=== PATIENT | male | born 1995 ===

== ENCOUNTER 2021-01-15 06:31 | Emergency (ER) | payer OTHER ==
[~2021-01-15] VITALS: Ht 190.5 cm; Wt 74.8 kg
[2021-01-15] MEDS ORDERED: ONDANSETRON 4 MG/2 ML VIAL ONE ×2 (06:59→08:31)
[2021-01-15] MEDS ORDERED: ONDANSETRON 4 MG/2 ML VIAL IV ONE ×2 (07:00→08:30)
[2021-01-15] MEDS ORDERED: IV NS 1000 ML 1,000 ML IV ONE (07:00)
[2021-01-15 07:11] LABS: HEMATOCRIT 46.9 % (36.7-47.1); MEAN CORPUSCULAR VOLUME 91.1 fL (73.0-96.2); PLATELET COUNT (AUTO) 287 K/uL (152-348)
--- NOTE | 2021-01-15 07:14 | NUR ---
Report given to oncoming DUANE Tejeda.
[2021-01-15 07:25] LABS: BILIRUBIN,DIRECT 0.2 mg/dL (0.0-0.2); BILIRUBIN,TOTAL 0.7 mg/dL (0.2-1.0); CREATININE 1.1 mg/dL (0.6-1.3); POTASSIUM 3.4 mmol/L (3.5-5.1); TOTAL PROTEIN, SERUM 8.2 g/dL (6.4-8.2)
--- NOTE | 2021-01-15 07:47 | NUR ---
Pain now at 5/10 down from 10/10
[2021-01-15] MEDS ORDERED: FAMOTIDINE. 20 MG/2 ML VIAL IV ONE ×2 (08:30→08:32)
[2021-01-15 08:34] LABS: *BILIRUBIN,URIN NEGATIVE (NEGATIVE); *BLOOD, URINE NEGATIVE (NEGATIVE); *CLARITY,URINE CLEAR (CLEAR); *COLOR,URINE YELLOW (YELLOW); *KETONES,URINE 1+ (NEGATIVE); *UROBILINOGEN,URINE 0.2 E.U./dl (NORMAL); LEUKOCYTE ESTERASE ,URINE NEGATIVE (NEGATIVE); NITRITE, URINE NEGATIVE (NEGATIVE); PH,URINE 8.5 (5.0-8.0); UGLUCOSE NEGATIVE (NEGATIVE)
[2021-01-15] MEDS ORDERED: FAMO-132 PO (08:59)
[2021-01-15] MEDS ORDERED: ONDA4TAB11 PO (08:59)
--- NOTE | 2021-01-15 09:01 | NUR ---
Removed IV intact, site okay, bandaged. Gave pt RX and d/c instructions, pt verbalized understanding.
[2021-01-15 09:02] LABS: *AMPHETAMINE, URINE NEGATIVE (NEGATIVE); *CANNABINOID, URINE POSITIVE (NEGATIVE); *COCCAINE, URINE POSITIVE (NEGATIVE); *OPIATE, URINE NEGATIVE (NEGATIVE); *PHENCYCLIDINE SCREEN,URINE NEGATIVE (NEGATIVE)
[2021-01-15 09:12] LABS: RBC,URINE NONE SEEN /HPF (0-3); SQUAMOUS EPITHELIAL CELL,UR NONE SEEN /HPF (NONE SEEN); URINE AMORPHOUS URATE MANY /HPF; WBC,URINE NONE SEEN /HPF (0-3)
== END 2021-01-15 09:10 | disposition home or self-care (01) ==
LOC: ER 06:39
DX: R10.13 Epigastric pain (principal); R11.2 Nausea with vomiting, unspecified; R19.7 Diarrhea, unspecified; F17.210 Nicotine dependence, cigarettes, uncomplicated; F14.90 Cocaine use, unspecified, uncomplicated
CPT/HCPCS: 36415; 80048; 80076; 80307; 81001; 83690; 85025; 93005; 96374; 96375; 96376; 99284; J2405 ×2; J3490; A4663; J7030